=== PATIENT | female | born 1985 | race Caucasian/White ===

== ENCOUNTER 2017-03-13 15:52 | Emergency (ER) | payer OTHER ==
[2017-03-13 16:17] VITALS: BP 131/76; PULSE 89; RESP 18; TEMP 98.8
[2017-03-13] MEDS ORDERED: KETOROLAC 60 MG/2 ML VIAL IM STA (17:40)
[2017-03-13] MEDS ORDERED: ORPHENADRINE 30 MG/ML 2 ML VIAL IM STA (17:40)
[2017-03-13] MEDS ORDERED: traMADol 50 MG STARTER PACK 3 TAB BTL PO STA (17:41)
--- NOTE | 2017-03-13 17:43 | ED ---
Back Pain HPI - General Chief Complaint: Back Pain/Injury Stated Complaint: Shoulder Pain Time Seen by Provider: 03/13/17 17:27 Source: patient, RN notes reviewed, old records reviewed Limitations: no limitations - History of Present Illness Initial Comments: This is a 32 year old woman with chief complaint of neck and upper back pain after moving for the past 3 days. she denies any falls or trauma to her back. She has been packing and moving a lot of boxes. She states that she feels the pain in bilateral shoulders. Denies any decreased range of motion in shoulder or upper extremity. States the pain is exacerbated with movement of her neck in all directions. She states that she has tried motrin without help. She denies peripheral paresthesias, chest pain, shortness of breath, nausea, vomiting, abdominal pain, vomiting, diarreha. - Related Data Home Medications Medication Instructions Recorded Confirmed Albuterol Inhaler [Ventolin Hfa 2 puff INHALATION RT-Q6H PRN 06/05/16 06/28/16 Inhaler] Naproxen Sodium [Aleve] 440 mg PO BID PRN 06/05/16 06/28/16 Cetirizine HCl [Zyrtec] 10 mg PO DAILY 06/28/16 06/28/16 Mometasone Furoate [Nasonex Nasal 1 - 2 spray EA NOSTRIL DAILY 06/28/16 06/28/16 [place]] Sulfamethox-Tmp 800-160Mg [Bactrim 1 tab PO Q12HR 06/28/16 06/28/16 DS 800-160 mg] Previous Rx's Medication Instructions Recorded Amoxicillin 500 mg PO Q8H #30 capsule 06/28/16 Nystatin 100,000 Unit/ml Susp 5 ml PO QID #200 ml 06/28/16 [Mycostatin Oral Susp] Cyclobenzaprine [Flexeril] 10 mg PO TID #20 tab 03/13/17 traMADol HCl [Ultram] 50 mg PO Q6H PRN #15 tab 03/13/17 Allergies Allergy/AdvReac Type Severity Reaction Status Date / Time ciprofloxacin [From Cipro] Allergy Unknown Verified 03/13/17 16:17 ciprofloxacin HCl Allergy Unknown Verified 03/13/17 16:17 [From Cipro] latex Allergy Rash/Hives Verified 03/13/17 16:17 Review of Systems ROS Statement: Those systems with pertinent positive or pertinent negative responses have been documented in the HPI. ROS Other: All systems not noted in ROS Statement are negative. Past Medical History Additional Past Medical History / Comment(s): VITAMIN b12 and d DEFICIENCY, back pain; hip pain History of Any Multi-Drug Resistant Organisms: None Reported Past Surgical History: Section, Cholecystectomy, Tubal Ligation Additional Past Surgical History / Comment(s): left axilla cyst removed Past Psychological History: Anxiety, Bipolar, Depression, Schizophrenia Smoking Status: Current every day smoker Past Alcohol Use History: None Reported, Rare Past Drug Use History: None Reported General Exam - General Exam Comments Initial Comments: Well appearing 32 year old female. Limitations: no limitations General appearance: alert, in no apparent distress Head exam: Present: atraumatic, normocephalic, normal inspection Eye exam: Present: normal appearance, PERRL, EOMI. Absent: scleral icterus, conjunctival injection, periorbital swelling ENT exam: Present: normal exam, mucous membranes moist Neck exam: Present: normal inspection. Absent: tenderness, meningismus, lymphadenopathy Respiratory exam: Present: normal lung sounds bilaterally. Absent: respiratory distress, wheezes, rales, rhonchi, stridor Cardiovascular Exam: Present: regular rate, normal rhythm, normal heart sounds. Absent: systolic murmur, diastolic murmur, rubs, gallop, clicks GI/Abdominal exam: Present: soft, normal bowel sounds. Absent: distended, tenderness, guarding, rebound, rigid Extremities exam: Present: normal inspection, full ROM, normal capillary refill. Absent: tenderness, pedal edema, joint swelling, calf tenderness Back exam: Present: normal inspection Neurological exam: Present: alert, oriented X3, CN II-XII intact Psychiatric exam: Present: normal affect, normal mood Skin exam: Present: warm, dry, intact, normal color. Absent: rash Course Vital Signs 03/13/17 16:14 Temperature 98.8 F Pulse Rate 89 Respiratory 18 Rate Blood Pressure 131/76 O2 Sat by Pulse 98 Oximetry Medical Decision Making - Medical Decision Making Patient is a 32year old with neck and thoracic back pain radiating to her shoulders after she was moving. Patient has signifcant muscle spasm in neck and trapezius. Patient given IM toradol and norflex. Discharged with ultram and flexeril. Discussed follow up with PCP if symptoms persist. Patient agrees to treatment plana nd will comply Disposition Clinical Impression: Cervical paraspinal muscle spasm, Spasm of thoracic back muscle Disposition: HOME SELF-CARE Condition: Good Instructions: Acute Low Back Pain (ED) Additional Instructions: Patient is to follow-up with primary care provider symptoms continue to persist. Patient needs to take muscle relaxers and get a deep tissue massage. Apply heat and ice to the back. Return to the emergency department if any alarming signs or symptoms occur. Prescriptions: Cyclobenzaprine [Flexeril] 10 mg PO TID #20 tab traMADol HCl [Ultram] 50 mg PO Q6H PRN #15 tab PRN Reason: Pain Referrals: Vincent Alcantara DO [Primary Care Provider] - 1-2 days Time of Disposition: 17:41
== END 2017-03-13 18:10 | disposition home or self-care (01) ==
LOC: EC 15:52
DX: M62.830 Muscle spasm of back (principal); F17.200 Nicotine dependence, unspecified, uncomplicated; Z88.1 Allergy status to other antibiotic agents; Z91.040 Latex allergy status; Z79.899 Other long term (current) drug therapy
CPT/HCPCS: 99283; 96372 ×2; J2360; J1885

== ENCOUNTER 2018-04-07 16:03 | Emergency (ER) | payer OTHER ==
[2018-04-07 16:06] VITALS: BP 136/86; PULSE 110; RESP 18; TEMP 98.1
--- NOTE | 2018-04-07 16:56 | ED ---
Skin/Abscess/FB HPI - General Chief complaint: Skin/Abscess/Foreign Body Stated complaint: Cyst on armpit Time Seen by Provider: 04/07/18 16:41 Source: patient, RN notes reviewed Mode of arrival: ambulatory Limitations: no limitations - History of Present Illness Initial comments: This is a 33-year-old female who presents to the emergency department with chief complaint of "armpit cyst." Patient states that she developed a cyst in her right axilla yesterday. Patient states that she has a history of these. She states that she was seeing Dr. Rosado but he is no longer working in the office where she went. She states that she does have a follow-up appointment tomorrow with her primary care provider to receive a referral to a new surgeon. She states there has been no drainage noted. Denies fevers or chills, chest pain or shortness of breath, abdominal pain, nausea or vomiting. - Related Data Home Medications Medication Instructions Recorded Confirmed Albuterol Inhaler [Ventolin Hfa 2 puff INHALATION RT-Q6H PRN 06/05/16 06/28/16 Inhaler] Naproxen Sodium [Aleve] 440 mg PO BID PRN 06/05/16 06/28/16 Cetirizine HCl [Zyrtec] 10 mg PO DAILY 06/28/16 06/28/16 Mometasone Furoate [Nasonex Nasal 1 - 2 spray EA NOSTRIL DAILY 06/28/16 06/28/16 [place]] Sulfamethox-Tmp 800-160Mg [Bactrim 1 tab PO Q12HR 06/28/16 06/28/16 DS 800-160 mg] Previous Rx's Medication Instructions Recorded Amoxicillin 500 mg PO Q8H #30 capsule 06/28/16 Nystatin 100,000 Unit/ml Susp 5 ml PO QID #200 ml 06/28/16 [Mycostatin Oral Susp] Cyclobenzaprine [Flexeril] 10 mg PO TID #20 tab 03/13/17 traMADol HCl [Ultram] 50 mg PO Q6H PRN #15 tab 03/13/17 Cephalexin [Keflex] 500 mg PO Q12HR #20 cap 04/07/18 Ibuprofen 600 mg PO Q6HR #30 tablet 04/07/18 Sulfamethox-Tmp 800-160Mg [Bactrim 1 tab PO Q12HR #20 tab 04/07/18 DS 800-160 mg] Allergies Allergy/AdvReac Type Severity Reaction Status Date / Time ciprofloxacin [From Cipro] Allergy Unknown Verified 04/07/18 16:06 ciprofloxacin HCl Allergy Unknown Verified 04/07/18 16:06 [From Cipro] latex Allergy Rash/Hives Verified 04/07/18 16:06 Review of Systems ROS Statement: Those systems with pertinent positive or pertinent negative responses have been documented in the HPI. ROS Other: All systems not noted in ROS Statement are negative. Past Medical History Additional Past Medical History / Comment(s): VITAMIN b12 and d DEFICIENCY, back pain; hip pain History of Any Multi-Drug Resistant Organisms: None Reported Past Surgical History: Section, Cholecystectomy, Tubal Ligation Additional Past Surgical History / Comment(s): left axilla cyst removed Past Psychological History: Anxiety, Bipolar, Depression, Schizophrenia Smoking Status: Current every day smoker Past Alcohol Use History: None Reported, Rare Past Drug Use History: None Reported General Exam - General Exam Comments Initial Comments: General: Awake and alert, well-developed; in no apparent distress. HEENT: Head atraumatic, normocephalic. Pupils are equal, round and reactive to light. Extraocular movements intact. Oropharynx moist without erythema or exudate. Neck: Supple. Normal ROM. Cardiovascular: Regular rate and rhythm. No murmurs, rubs or gallops. Chest symmetrical. Respiratory: Lungs clear to auscultation bilaterally. No wheezes, rales or rhonchi. Normal respiratory effort with no use of accessory muscles. Musculoskeletal: Normal ROM, no tenderness bilateral upper and lower extremities. Ambulating normally. Skin: Hiss[place], warm and dry. Approximately 2.0 cm in diameter abscess right axilla with surrounding induration. No active drainage. Neurological: Alert and oriented x3. CN II-XII grossly intact. Speech is fluent and answers are appropriate. No focal neuro deficits. Psychiatric: Normal mood and affect. No overt signs of depression or anxiety noted. Limitations: no limitations Course Vital Signs 04/07/18 16:04 Temperature 98.1 F Pulse Rate 110 H Respiratory 18 Rate Blood Pressure 136/86 O2 Sat by Pulse 100 Oximetry Procedures - Incision & Drainage Consent Obtained: verbal consent Indication: Abscess Site: upper extremity (Right axilla) Size (cm): 2 I&D Cleaning Method: Alcohol Wipe Scalpel Used: #11 I&D Drainage Obtained: Pus, Blood Culture Obtained?: No Patient Tolerated Procedure: well, no complications Medical Decision Making - Medical Decision Making This is a 33-year-old female who presents to the emergency department with a right axilla abscess. I&D was performed and patient tolerated well. She will be started on Keflex and Bactrim. She will also be given a prescription for ibuprofen 600 mg to be taken every 6 hours as needed for pain and inflammation. She is to follow-up with her primary care provider tomorrow as scheduled. Patient's vital signs are stable and she is in no acute distress. She'll be discharged home at this time. She is in agreement with plan and voices understanding. All questions answered. Disposition Clinical Impression: Abscess of skin or subcutaneous tissue Disposition: HOME SELF-CARE Condition: Good Instructions: Abscess (ED), Abscess Incision and Drainage (ED) Additional Instructions: Please take medications as prescribed. Please follow up with primary care provider within 1-2 days. Return to emergency department if symptoms should worsen or any concerns arise. Prescriptions: Cephalexin [Keflex] 500 mg PO Q12HR #20 cap Ibuprofen 600 mg PO Q6HR #30 tablet Sulfamethox-Tmp 800-160Mg [Bactrim DS 800-160 mg] 1 tab PO Q12HR #20 tab Is patient prescribed a controlled substance at d/c from ED?: No Referrals: Vincent Alcantara DO [Primary Care Provider] - 1-2 days Time of Disposition: 16:55
== END 2018-04-07 17:07 | disposition home or self-care (01) ==
LOC: EC 16:03
DX: L02.411 Cutaneous abscess of right axilla (principal); F17.200 Nicotine dependence, unspecified, uncomplicated; Z79.51 Long term (current) use of inhaled steroids; Z79.899 Other long term (current) drug therapy; Z88.1 Allergy status to other antibiotic agents; Z91.040 Latex allergy status
CPT/HCPCS: 10060; 99282

== ENCOUNTER 2019-03-14 20:36 | Emergency (ER) | payer OTHER ==
--- NOTE | 2019-03-14 21:49 | ED ---
General Adult HPI - General Chief complaint: ENT Stated complaint: Sinus Pressure/Pain Time Seen by Provider: 03/14/19 20:58 Source: patient, RN notes reviewed Mode of arrival: ambulatory Limitations: no limitations - History of Present Illness Initial comments: 34-year-old female With a past medical history of vitamin deficiency, back pain, hip pain presents to the emergency department for chief point of right-sided facial pain. Patient states this has been ongoing for one day. Patient states the right side of her nose feels very dry when she breathes in. She states her sinus on the right side of her face also feels dry. Patient states it is causing pressure on her teeth and her eye. Denies any visual changes. Denies any headaches. Denies ear pressure. The states she has history of ALLERGIES and hasn't been taking her Zyrtec but has been unable to use her nasal spray because the right side of her nose is very sensitive. Patient states she has an appointment with her primary care tomorrow but decided to come in tonight to be evaluated.Patient has no other complaints at this time including shortness of breath, chest pain, abdominal pain, nausea or vomiting, headache, or visual changes. - Related Data Home Medications Medication Instructions Recorded Confirmed Albuterol Inhaler [Ventolin Hfa 2 puff INHALATION RT-Q6H PRN 06/05/16 06/28/16 Inhaler] Naproxen Sodium [Aleve] 440 mg PO BID PRN 06/05/16 06/28/16 Cetirizine HCl [Zyrtec] 10 mg PO DAILY 06/28/16 06/28/16 Mometasone Furoate [Nasonex Nasal 1 - 2 spray EA NOSTRIL DAILY 06/28/16 06/28/16 [place]] Sulfamethox-Tmp 800-160Mg [Bactrim 1 tab PO Q12HR 06/28/16 06/28/16 DS 800-160 mg] Previous Rx's Medication Instructions Recorded Amoxicillin 500 mg PO Q8H #30 capsule 06/28/16 Nystatin 100,000 Unit/ml Susp 5 ml PO QID #200 ml 06/28/16 [Mycostatin Oral Susp] Cyclobenzaprine [Flexeril] 10 mg PO TID #20 tab 03/13/17 traMADol HCl [Ultram] 50 mg PO Q6H PRN #15 tab 03/13/17 Cephalexin [Keflex] 500 mg PO Q12HR #20 cap 04/07/18 Ibuprofen 600 mg PO Q6HR #30 tablet 04/07/18 Sulfamethox-Tmp 800-160Mg [Bactrim 1 tab PO Q12HR #20 tab 04/07/18 DS 800-160 mg] methylPREDNISolone Dose Pack 4 mg PO DIRECTED #21 package 03/14/19 [Medrol Dose Pack] Allergies Allergy/AdvReac Type Severity Reaction Status Date / Time adhesive Allergy Rash/Hives Verified 03/14/19 20:42 ciprofloxacin [From Cipro] Allergy Unknown Verified 03/14/19 20:42 ciprofloxacin HCl Allergy Unknown Verified 03/14/19 20:42 [From Cipro] latex Allergy Rash/Hives Verified 03/14/19 20:42 Review of Systems ROS Statement: Those systems with pertinent positive or pertinent negative responses have been documented in the HPI. ROS Other: All systems not noted in ROS Statement are negative. Past Medical History Additional Past Medical History / Comment(s): VITAMIN b12 and d DEFICIENCY, back pain; hip pain History of Any Multi-Drug Resistant Organisms: None Reported Past Surgical History: Section, Cholecystectomy, Tubal Ligation Additional Past Surgical History / Comment(s): left axilla cyst removed Past Psychological History: Anxiety, Bipolar, Depression, Schizophrenia Smoking Status: Current every day smoker Past Alcohol Use History: Rare Past Drug Use History: None Reported General Exam Limitations: no limitations General appearance: alert, in no apparent distress Head exam: Present: atraumatic, normocephalic, normal inspection Eye exam: Present: normal appearance, PERRL, EOMI. Absent: scleral icterus, conjunctival injection, periorbital swelling (No edema noted), periorbital tenderness ENT exam: Present: normal exam, normal oropharynx (Uvula midline, no tonsillar exudates noted bilaterally), mucous membranes moist, TM's normal bilaterally (Nonerythematous, nonbulging, minimal opacification noted in the right tympanic membrane more than the left), normal external ear exam, other (Minimal right maxillary tenderness, no erythema or edema) Neck exam: Present: normal inspection, full ROM. Absent: tenderness, meningismus, lymphadenopathy Respiratory exam: Present: normal lung sounds bilaterally. Absent: respiratory distress, wheezes, rales, rhonchi, stridor Cardiovascular Exam: Present: regular rate, normal rhythm, normal heart sounds. Absent: systolic murmur, diastolic murmur, rubs, gallop, clicks Neurological exam: Present: alert, oriented X3, CN II-XII intact Psychiatric exam: Present: normal affect, normal mood Course Vital Signs 03/14/19 20:38 Temperature 98.0 F Pulse Rate 85 Respiratory 17 Rate Blood Pressure 130/87 O2 Sat by Pulse 98 Oximetry Medical Decision Making - Medical Decision Making 34-year-old female presents for right-sided facial pressure. States this has been ongoing since this morning. Does have a history of ALLERGIES but has been unable to take her nasal spray due to irritation in the right side of the nares. States she has pressure in also feels like her the right side of her nose and right maxillary sinus is dry when breathing through the nose. States it is also causing pressure on her teeth. No fevers or chills. No erythema or edema noted of the right maxillary sinus. TM within normal limits although slightly more opacified on the right compared to the left. Patient likely has sinusitis related to ALLERGIES given irritation to the right side of the nares as well as the maxillary sinus. Patient will be given Medrol Dosepak. This has only been going on for 1 day do not think antibiotics are necessary, patient is also afebrile and has not had any fevers. Patient will follow up with primary care at her appointment tomorrow. She will return here if she has any worsening symptoms. Disposition Clinical Impression: Sinusitis Disposition: HOME SELF-CARE Condition: Good Instructions (If sedation given, give patient instructions): Rhinosinusitis (ED) Additional Instructions: Please take steroid as directed. Continue to take Zyrtec and use your nasal spray. Please follow-up with primary care at your appointment tomorrow. Return here if you have any worsening symptoms. Prescriptions: methylPREDNISolone Dose Pack [Medrol Dose Pack] 4 mg PO DIRECTED #21 package Is patient prescribed a controlled substance at d/c from ED?: No Referrals: Flaquita Valdez DO [Primary Care Provider] - 1-2 days Time of Disposition: 21:48
[2019-03-14 22:16] VITALS: BP 139/78; PULSE 82; RESP 18; TEMP 99.2
== END 2019-03-14 22:14 | disposition home or self-care (01) ==
LOC: EC 20:36
DX: J32.9 Chronic sinusitis, unspecified (principal); H73.891 Other specified disorders of tympanic membrane, right ear; F17.200 Nicotine dependence, unspecified, uncomplicated; Z88.1 Allergy status to other antibiotic agents; Z91.040 Latex allergy status; Z91.048 Other nonmedicinal substance allergy status; Z79.51 Long term (current) use of inhaled steroids; Z79.899 Other long term (current) drug therapy
CPT/HCPCS: 99283